=== PATIENT | male | born 1975 | race Caucasian/White ===

== ENCOUNTER → 2020-06-19 08:30 | Emergency (ER) | payer OTHER, SELFPAY ==
--- NOTE | 2020-06-19 14:19 | PC.NURSE ---
0830 following registration, prior to triage, pt asks staff if we can take his blood pressure with no charge. informed he would have to be seen and evaluated by provider and there would be a charge. states he is not symptomatic for htn and does not want [email or web address] be seen at this time.
== END | disposition left against medical advice (07) ==
LOC: EXPBETH 08:34
PROVIDERS: Emergency Provider Nurse Practitioner
DX: Z53.21 Procedure and treatment not carried out due to patient leaving prior to being seen by health care provider (principal)
CPT/HCPCS: 99199